=== PATIENT | female | born 1985 | race Hispanic/Latino ===

== ENCOUNTER 2024-08-23 20:50 | Emergency (ER) | payer OTHER ==
[~2024-08-23] VITALS: Ht 160 cm; Wt 68.1 kg
[2024-08-23 21:23] LABS: BASOPHILS # (AUTO) 0.07 K/uL (0.00-0.20); BASOPHILS % (AUTO) 0.8 % (0.0-5.0); EOSINOPHILS # (AUTO) 0.06 K/uL (0.00-0.70); EOSINOPHILS % (AUTO) 0.7 % (0.0-8.0); HEMATOCRIT 37.7 % (36-48); IMMATURE GRANULOCYTE ABSOLUTE 0.03 K/uL (0-1); LYMPHOCYTES # (AUTO) 1.4 K/uL (1.0-4.8); LYMPHOCYTES % (AUTO) 15.6 % (21.0-51.0); MEAN CORPUSCULAR HEMOGLOBIN 31.1 pg (27.0-33.0); MEAN CORPUSCULAR HGB CONC 35.3 g/dL (32.0-36.0); MEAN CORPUSCULAR VOLUME 88.1 fL (79-99); MONOCYTES # (AUTO) 0.4 K/uL (0.1-1.0); MONOCYTES % (AUTO) 4.5 % (3.0-13.0); NEUTROPHILS % (AUTO) 78.1 % (40.0-77.0); PLATELET COUNT (AUTO) 353 K/uL (130-400); RED BLOOD CELL COUNT(AUTO) 4.28 MIL/uL (4.00-5.50); RED CELL DISTRIBUTION WIDTH 11.8 % (11.0-15.5)
[2024-08-23] MEDS ORDERED: IOHEXOL-350 75 ML VIAL IV ONE (21:28)
[2024-08-23] MEDS: LIDOCAINE HCL 2% VISCOUS 15 ML UDCUP PO ONE (21:37)
[2024-08-23] MEDS: MAG/ALUM/SIMETH 30 ML UDCUP PO ONE (21:37)
[2024-08-23] MEDS: PANTOPrazole 40 MG TAB DR PO ONE (21:37)
[2024-08-23 21:41] LABS: CREATININE 0.9 mg/dL (0.5-1.0); POTASSIUM 3.9 mmol/L (3.5-5.1)
[2024-08-23 21:50] LABS: APPEARANCE,URINE CLEAR (CLEAR); BILIRUBIN,URINE NEGATIVE (NEGATIVE); COLOR,URINE LIGHT-YELLOW (YELLOW); GLUCOSE, URINE (UA) NEGATIVE (NEGATIVE); KETONES,URINE >=80 mg/dL (NEGATIVE); LEUKOCYTE ESTERASE ,URINE NEGATIVE Leu/uL (NEGATIVE); NITRATE,URINE NEGATIVE (NEGATIVE); OCCULT BLOOD,URINE NEGATIVE (NEGATIVE); PH,URINE 5.5 (5.0-8.0); PROTEIN,URINE NEGATIVE (NEGATIVE); UROBILINOGEN,URINE 0.2 mg/dL (0.2-1.0)
[2024-08-23 21:53] LABS: BACTERIA,URINE RARE /HPF (None Seen); RBC,URINE 0-1 /HPF (0-1); SQUAMOUS EPITHELIAL CELL,UR RARE /HPF (0-2)
[2024-08-23 21:54] LABS: HCG,QUALITATIVE URINE NEGATIVE (NEGATIVE)
--- NOTE | 2024-08-23 22:13 | EKG ---
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
--- NOTE | 2024-08-23 22:29 | NUR ---
PT TO CT AT THIS TIME.
--- NOTE | 2024-08-23 22:49 | NUR ---
PT BACK FROM CT.
--- NOTE | 2024-08-23 23:19 | HMCIMG ---
CT ABDOMEN/PELVIS W/CONTRAST HISTORY: Pain COMPARISON: None TECHNIQUE: Multiple sequential axial images of the abdomen and pelvis were obtained from the dome of the diaphragm through symphysis pubis. Patient was given 75 cc of Omnipaque through intravenous route. Oral contrast was not given. FINDINGS: No pleural effusion is seen bilaterally. There is no evidence of parenchymal disease or pulmonary nodule of the visualized lower lungs. Degenerative changes of the thoracolumbar spine are present. The heart is not enlarged. The liver, spleen, adrenal glands and pancreas are unremarkable. There is no evidence of hydronephrosis bilaterally. No evidence of renal stone is seen. Fecal material is seen in the colon. There are normal size retroperitoneal and mesenteric lymph nodes. No ascites is seen. No CT evidence of acute appendicitis is seen. Clinical correlation is performed. Pelvic sidewalls are symmetric bilaterally. Bladder is well distended without wall thickening. IMPRESSION: 1. No acute findings. CT was performed with one or more following dose reduction techniques: automated exposure control, adjustment of the mA and kv according to patient's size, or use of a iterative reconstruction technique.
[2024-08-23] MEDS ORDERED: ONDA-243 PO (23:37)
[2024-08-23] MEDS ORDERED: PANT20TA PO (23:37)
--- NOTE | 2024-08-23 23:38 | ERN ---
General Chief Complaint: Abdominal Pain Stated Complaint: SEVERE STOMACH PAIN,NAUSEA,DIARRHEA Time Seen by MD: 20:51 Time Seen by Midlevel: 20:51 Source: patient History of Present Illness Initial Comments 39-year-old female who presents to the emergency department due to abdominal pain onset one week. Patient reports severe worsening pain at 2:00 p.m, states it is in the umbilicus area and radiates epigastrically. States she has been having nausea, vomiting, diarrhea but denies any fever, dysuria or further associated symptoms. Patient reports she initiated Zepbound approximately 1 week ago. PMHx HTN but not taken any medications. Allergies: Coded Allergies: gluten (Unverified Allergy, Unknown, 08/23/24) Home Meds Active Scripts Ondansetron (Ondansetron Odt) 4 Mg Tab.rapdis, 4 MG PO TID for 3 Days, #9 TAB Prov:ORION SALEH 08/23/24 Pantoprazole Sodium (Protonix) 20 Mg Tablet.dr, 1 TAB PO DAILY for 7 Days, #7 TAB 0 Refills Prov:ORION SALEH 08/23/24 Past Medical History Past Medical History: Hypertension Past Surgical History: None Female( History) LMP: Aug 09, 2024 ROS Dictation Constitutional: Negative for fever,chills, and weight loss Eyes: Negative for injury, pain,redness, and discharge ENT: Negative for injury,pain or swelling Cardiovascular: Negative for chest pain, palpitations, and edema Respiratory: Negative for shortness of breath, cough, and wheezing, Abdomen/GI: Positive for abdominal pain, nausea, vomiting, diarrhea Back: Negative for injury and pain : Negative for painful urination, bleeding or discharge MS/Extremity: Negative for injury and deformity Skin: Negative for rash, and discoloration Neuro: Negative for headache, weakness, numbness, tingling, and seizure Psych: Negative for suicide ideation, homicidal ideation, and hallucinations Physical Exam Physical Exam Dictation General: awake, alert, no acute distress Head/Face: Normocephalic, atraumatic Eyes: PERRL, EOMI, normal conjunctiva ENT: oral cavity clear, oral mucosa moist Neck: Supple, normal range of motion Cardiovascular: RRR, normal S1/S2 Respiratory: CTAB, no respiratory distress, no rales or wheezes Abdomen: Soft, mild epigastric tenderness, non-distended, no guarding or rebound. Skin: Warm, dry, normal turgor, no rash MS/Extremity: Pulses equal, no cyanosis, neurovascular intact, FROM Neuro: COAx4, GCS 15, strength 5/5, CN 2-12 intact, normal cerebellar exam, normal gait Psych: Normal behavior, mood, and affect normal Results Laboratory and Microbiology Lab and Micro Result Laboratory Tests Test 08/23/24 21:16 08/23/24 21:42 White Blood Count 9.0 K/uL (4.8-10.8) Red Blood Count 4.28 MIL/uL (4.00-5.50) Hemoglobin 13.3 g/dL (12.0-16.0) Hematocrit 37.7 % (36-48) Mean Corpuscular Volume 88.1 fL (79-99) Mean Corpuscular Hemoglobin 31.1 pg (27.0-33.0) Mean Corpuscular Hemoglobin Concent 35.3 g/dL (32.0-36.0) Red Cell Distribution Width 11.8 % (11.0-15.5) Platelet Count 353 K/uL (130-400) Mean Platelet Volume 10.9 fL (7.5-10.5) H Immature Granulocyte % (Auto) 0.3 % (0-1) Neutrophils (%) (Auto) 78.1 % (40.0-77.0) H Lymphocytes (%) (Auto) 15.6 % (21.0-51.0) L Monocytes (%) (Auto) 4.5 % (3.0-13.0) Eosinophils (%) (Auto) 0.7 % (0.0-8.0) Basophils (%) (Auto) 0.8 % (0.0-5.0) Neutrophils # (Auto) 7.0 K/uL (1.8-7.7) Lymphocytes # (Auto) 1.4 K/uL (1.0-4.8) Monocytes # (Auto) 0.4 K/uL (0.1-1.0) Eosinophils # (Auto) 0.06 K/uL (0.00-0.70) Basophils # (Auto) 0.07 K/uL (0.00-0.20) Absolute Immature Granulocyte (auto 0.03 K/uL (0-1) Nucleated Red Blood Cells 0.0 % (0.0-0.19) Sodium Level 135 mmol/L (136-145) L Potassium Level 3.9 mmol/L (3.5-5.1) Chloride Level 99 mmol/L (101-111) L Carbon Dioxide Level 27 mmol/L (21-32) Blood Urea Nitrogen 9 mg/dL (7-18) Creatinine 0.9 mg/dL (0.5-1.0) Glomerular Filtration Rate Calc 84 mL/min (>90) Random Glucose 92 mg/dL (70-105) Total Calcium 8.6 mg/dL (8.5-10.1) Total Bilirubin 1.0 mg/dL (0.2-1.0) Direct Bilirubin 0.2 mg/dL (0.0-0.3) Aspartate Amino Transf (AST/SGOT) 19 U/L (10-37) Alanine Aminotransferase (ALT/SGPT) 19 U/L (12-78) Alkaline Phosphatase 47 U/L (50-136) L Troponin I High Sensitivity < 4 ng/L (4-50) L Total Protein 7.6 g/dL (6.0-8.3) Albumin 4.3 g/dL (3.5-5.0) Urine Color LIGHT-YELLOW (YELLOW) Urine Appearance CLEAR (CLEAR) Urine pH 5.5 (5.0-8.0) Urine Specific [place] 1.011 (1.001-1.031) Urine Protein NEGATIVE mg/dL (NEGATIVE) Urine Glucose (UA) NEGATIVE mg/dL (NEGATIVE) Urine Ketones >=80 mg/dL (NEGATIVE) Urine Occult Blood NEGATIVE (NEGATIVE) Urine Nitrate NEGATIVE (NEGATIVE) Urine Bilirubin NEGATIVE mg/dL (NEGATIVE) Urine Urobilinogen 0.2 mg/dL (0.2-1.0) Urine Leukocyte Esterase NEGATIVE Harjit/uL Urine RBC 0-1 /HPF (0-1) Urine WBC 2-5 /HPF (0-1) H Urine Squamous Epithelial Cells RARE /HPF (0-2) Urine Bacteria RARE /HPF (None Seen) Urine HCG, Qualitative NEGATIVE (NEGATIVE) Labs Reviewed?: Yes EKG/XRAY/US/CT/MRI EKG Comment Date: 08/23/2024 Time: 2210 Rate: 72 EKG interpretation: Sinus rhythm, no STEMI, normal EKG Reviewed by ED Attending CT Scan Comment REASON: umbilical, epigastric pain ORDERING PHYSICIAN: ORION SALEH PROCEDURE: ABD PEL W - CT ABDOMEN/PELVIS W/CONTRAST CT ABDOMEN/PELVIS W/CONTRAST HISTORY: Pain COMPARISON: None TECHNIQUE: Multiple sequential axial images of the abdomen and pelvis were obtained from the dome of the diaphragm through symphysis pubis. Patient was given 75 cc of Omnipaque through intravenous route. Oral contrast was not given. FINDINGS: No pleural effusion is seen bilaterally. There is no evidence of parenchymal disease or pulmonary nodule of the visualized lower lungs. Degenerative changes of the thoracolumbar spine are present. The heart is not enlarged. The liver, spleen, adrenal glands and pancreas are unremarkable. There is no evidence of hydronephrosis bilaterally. No evidence of renal stone is seen. Fecal material is seen in the colon. There are normal size retroperitoneal and mesenteric lymph nodes. No ascites is seen. No CT evidence of acute appendicitis is seen. Clinical correlation is performed. Pelvic sidewalls are symmetric bilaterally. Bladder is well distended without wall thickening. IMPRESSION: 1. No acute findings. CT was performed with one or more following dose reduction techniques: automated exposure control, adjustment of the mA and kv according to patient's size, or use of a iterative reconstruction technique. DICTATED BY: VIV MAYORGA MD DATE: 08/23/24 [id number] [facility] MDM: Differential diagnosis: Gastritis, acid reflux, medication side effects, gastroenteritis Rationale: 39-year-old female who presents to the emergency department due to abdominal pain onset one week. Patient reports severe worsening pain at 2:00 p.m, states it is in the umbilicus area and radiates epigastrically. States she has been having nausea, vomiting, diarrhea but denies any fever, dysuria or further associated symptoms. Patient reports she initiated Zepbound approximately 1 week ago. PMHx HTN but not taken any medications. Labs obtained CBC nonspecific, no elevated WBCs, hyponatremia 135, hypochloremia 99, LFTs within normal limits, negative troponin, UA negative for urinary tract infection. CT abdomen and pelvis obtained indicates no acute findings. Patient was administered GI cocktail in the ED, on re-examination patient verbalized pain resolved and is feeling much better. Patient was educated on findings, diagnosis, and Zepbound side effects. Advised to follow up with PCP. Return to the emergency department if any worsening symptoms. Patient verbalized understanding. Patient stable for discharge. There are no social concerns with this patient. I independently interpreted the test that were performed, results were reviewed by me and considered findings on radiology if ordered. Medical management and examination interpretation discussions were had by me with other qualified healthcare professionals as indicated for the patient's care. Saw her dog ED Course Orders Procedure Category Date Status Time Cbc With Differential LAB 08/23/24 Complete 21:08 Basic Metabolic Panel LAB 08/23/24 Complete 21:08 Urinalysis LAB 08/23/24 Complete W/Microscopic 21:08 ,Urine Test LAB 08/23/24 Complete 21:08 Mag/Alum/Simeth 30ml PHA 08/23/24 Complete (Maalox Plus 30ml) 21:30 Lidocaine Hcl 2% PHA 08/23/24 Complete Viscous (Lidocaine Hcl 21:30 Pantoprazole 40mg Tab PHA 08/23/24 Complete (Protonix 40mg Tab 21:30 Ct Abdomen/Pelvis CT 08/23/24 Resulted W/Contrast 21:10 Iohexol (Omnipaque) PHA 08/23/24 Complete 21:28 Troponin I High LAB 08/23/24 Complete Sensitivity 22:06 12 Lead Ekg Tracing- EKG 08/23/24 Complete Technical 22:06 Hepatic Function Panel LAB 08/23/24 Complete 23:23 Current Medications Medications (Trade) Dose Ordered Sig/Emeli Route PRN Reason Start Time Stop Time Status Last Admin Dose Admin Al Hydroxide/Mg Hydroxide (MAALox PLUS 30ML) 30 ml ONCE ONCE PO 08/23/24 21:30 08/23/24 21:31 DC 08/23/24 21:37 Iohexol (Omnipaque) 75 ml STK-MED ONCE IV 08/23/24 21:28 08/23/24 21:29 DC Lidocaine HCl (Lidocaine HCl 2% Viscous) 10 ml ONCE ONCE PO 08/23/24 21:30 08/23/24 21:31 DC 08/23/24 21:37 Pantoprazole Sodium (PROTonix 40MG TAB) 40 mg ONCE ONCE PO 08/23/24 21:30 08/23/24 21:31 DC 08/23/24 21:37 Vital Signs Date Time Temp Pulse Resp B/P (MAP) Pulse Ox O2 Delivery O2 Flow Rate FiO2 08/24/24 00:22 98.8 84 20 144/78 97 Room Air* 0 21 25 23:06 80 16 155/94 99 Room Air* 0 21 08/23/24 21:55 98.8 86 20 171/98 98 Room Air* 0 08/23/24 21:00 98.8 20 178/117 98 Room Air DX & DISP Disposition: Discharge Departure Impression: Primary Impression: Acid reflux Additional Impression: Medication side effects Condition: Stable Scripts Ondansetron (Ondansetron Odt) 4 Mg Tab.rapdis 4 MG PO TID for 3 Days, #9 TAB Prov: ORION SALEH 08/23/24 Pantoprazole Sodium (Protonix) 20 Mg Tablet.dr 1 TAB PO DAILY for 7 Days, #7 TAB 0 Refills Prov: ORION SALEH 08/23/24 Additional Instructions: Discharge home. Rest. Follow up with primary care in 24 hours. Return to the ER for any acute changes or worsening symptoms. If any medications were prescribed take as directed. Okay to continue home medications unless otherwise discussed during your visit in the emergency room today. Patient was also advised to follow-up with primary care physician in 1 to 2 days for continued monitoring. I performed the substantive portion of the visit. I have reviewed and personal ly made and approve the management plan that is documented in the notes by myself or the FATIMAH. I acknowledge full responsibility for the patient's management plan. ORION SALEH August 23, 2024 23:38
[2024-08-23 23:41] LABS: ALBUMIN 4.3 g/dL (3.5-5.0); BILIRUBIN,DIRECT 0.2 mg/dL (0.0-0.3); TOTAL PROTEIN, SERUM 7.6 g/dL (6.0-8.3)
[2024-08-24 00:22] VITALS: BP 144/78; PULSE 84; RESP 20; TEMP 98.7; O2SAT 97
== END 2024-08-24 00:25 | disposition home or self-care (01) ==
LOC: EDH 20:50
DX: K21.9 Gastro-esophageal reflux disease without esophagitis (principal); I10 Essential (primary) hypertension; Z79.899 Other long term (current) drug therapy
CPT/HCPCS: 99285; 74177; 80076; 84484; 80048; 85025; 81001; 81025; 36415; 93005; Q9967